=== PATIENT | female | born 1980 | race African-American/Black ===

== ENCOUNTER 2017-11-05 18:21 | Emergency (ER) | payer OTHER ==
[~2017-11-05] VITALS: Ht 162.6 cm; Wt 86.2 kg
[~2017-11-05 18:21] MED LIST: FLONASE 0.05%50 MCG NASAL; TESSALON PERLE100 MG PO; ULTRAM 50MG TAB50 MG PO
[2017-11-05] MEDS ORDERED: IBUPROFEN 600600 M1 PO (19:51)
[2017-11-05 20:06] VITALS: BP 168/95
== END 2017-11-05 20:06 | disposition home or self-care (01) ==
LOC: ER 18:21
DX: S60.222A Contusion of left hand, initial encounter (principal); I10 Essential (primary) hypertension; F17.210 Nicotine dependence, cigarettes, uncomplicated; W22.03XA Walked into furniture, initial encounter; Y93.89 Activity, other specified; Y92.89 Other specified places as the place of occurrence of the external cause; Y99.8 Other external cause status